=== PATIENT | male | born 1965 | race Caucasian/White ===

== ENCOUNTER → 2019-10-26 | Outpatient (CLI) | payer OTHER ==
[~2019-10-26] MED LIST: ACETAMINOPHEN 325 MG TAB As Ordered ONE; AZIT500T5; B-1100TA2 PO; CONS10SO3 PO; FOLI1TAB11 PO; LISI10TA4; MAGNESIUM; MIDO5TA PO; MUCI1LIQ3 PO; POTASSIUM
--- NOTE | 2019-10-26 17:10 | REP ---
ULTRASOUND GUIDED LEFT THORACENTESIS The procedure was performed under the direct supervision of Dr. Khan. The risks and benefits of the procedure were explained to the patient and informed consent was obtained. The left pleural effusion was localized using ultrasound guidance. The skin was prepped and draped in a sterile fashion. 1% lidocaine was used as a local anesthetic. An 8-Turkmen multi side-hole catheter was inserted using trocar technique. 2000 ml of low viscosity red colored fluid was withdrawn and discarded. The patient tolerated the procedure well and there were no immediate complications. After the appropriate amount of monitored convalescence the patient was discharged from the department. Electronically Signed by ANAMARIA Ashford 10/26/2019 04:39 P Electronically Signed by Shashi Khan MD 10/26/2019 05:02 P
[2019-10-26 17:45] VITALS: BP 116/64
--- NOTE | 2019-10-27 08:30 | REP ---
LIMITED ABDOMINAL ULTRASOUND: Limited abdominal ultrasound performed prior to a scheduled paracentesis. No free ascites fluid is present and therefore, the paracentesis is cancelled. However there is a large complex septated cystic and solid mass in the mid abdomen measuring approximately 31 x 24 x 15 cm. Note is also made of a large left pleural effusion. Note is also made of two adjacent nodules in the left lobe of the liver, measuring approximately 5 cm in diameter and 3.7 cm in diameter. Electronically Signed by Shashi Khan MD 10/27/2019 07:31 P
--- NOTE | 2019-10-27 09:34 | REP ---
CHEST, TWO VIEWS: Two views of the chest are performed status post left thoracentesis. There is residual pleural fluid present on the left without evidence of pneumothorax. Right lung is clear. There is no gross cardiomegaly. Mediastinal silhouette is unremarkable. Electronically Signed by Shashi Khan MD 10/27/2019 07:31 P
== END ==
LOC: M IRPRO 13:35
PROVIDERS: ATTEND Specialist
DX: C22.0 Liver cell carcinoma (principal); R18.8 Other ascites; J90 Pleural effusion, not elsewhere classified; R19.07 Generalized intra-abdominal and pelvic swelling, mass and lump

== ENCOUNTER 2019-12-13 01:04 | Inpatient (IN) | payer OTHER ==
[2019-12-13] VITALS (23 sets, daily range): BP systolic 87–112; BP diastolic 49–80; O2SAT 97–100
[~2019-12-13 01:04] MED LIST changes: -ACETAMINOPHEN 325 MG TAB As Ordered ONE; -MAGNESIUM; -MIDO5TA PO; -POTASSIUM
[2019-12-13] MEDS ORDERED: MAGNESIUM (06:56)
[2019-12-13] MEDS ORDERED: POTASSIUM (06:56)
--- NOTE | 2019-12-13 07:28 | HPEPDOC ---
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 CXR from [facility] noted moderate b/l pleural effusions worse on the L. side. He was recently admitted at [facility] and underwent liver biopsy, received treatment for infected ascites with MSSA and treated with Rocephin. Despite the dyspnea, he was found to be saturating well at [facility] but noted to be anemic with Hb 6.3 and received 2 units pRBC. On arrival at [facility], patient states that he feels much better and no longer dyspneic. He reports generalized weakness but otherwise no specific complains including any chest pain, SOB, fever or chills. He states that he is aware of his poor prognosis and states that to let him go and don't resuscitate him if something happens. PAST MEDICAL HISTORY: Refer to HPI PAST SURGICAL HISTORY: TIPS Thoracentesis SOCIAL HISTORY: Hx heavy drinking, has quit for many years. denies tobacco or drug use. FAMILY HISTORY: Grandfather- prostate cancer ALLERGIES: Please see below. REVIEW OF SYSTEMS: 10 point ROS negative except as above HOME MEDICATIONS: Please see below. PHYSICAL EXAMINATION: - General: Jaundice/pale and dry. Generalized weakness. - HEENT: Atraumatic, PERRLA. Very dry mucous membrane. - CVS: normal rate, normal rhythm. - Lungs: Decrease breath sounds in b/l base with mild diffuse wheezing - Abdomen: Nontender, distended abdomen. - Extremities: No extremity swelling, limbs intact - Skin: Warm and dry - Neuro: CN II-XII grossly intact. Generalized weakness. LABORATORY DATA: See below. IMAGING: CXR 2 view ordered MICROBIOLOGY: Please see below. ASSESSMENT AND PLAN: 1. Dyspnea - recurrent pleural effusions s/p 3 thoracentesis. - saturating well on this admission and patient is not complaining of any dyspnea at the moment. - f/u CXR. Consider diuresis vs. thoracentesis. - oxygen support if needed. 2. Decompensated liver failure in setting of hepatocellular carcinoma - Reports of palliative treatment vs. hospice noted on outpatient note. - Unclear as to current course of treatment plan per patient, may benefit from more records. - Labs from [facility] noted elevated bilirubin 6.4, elevated lactic acid, and INR 3.4. - Patient had noted that he is to be DNR/DNI. Concern that he may continue to decline on this admission. - From records: INR 3.4, LA 4.1, Cr 1.2. - Patient received 2 units pRBC. f/u Repeat CBC. - CXR 2View ordered here. may need CTS vs. IR evaluation for thoracentesis. - Obtain abdominal US. Received rocephin prior to arrival. DVT ppx: SCD, no chemical ppx given anemia Code status: DNR/DNI Vital Signs Vital Signs Date Time Temp Pulse Resp B/P (MAP) Pulse Ox O2 Delivery O2 Flow Rate FiO2 12/13/19 06:00 97.9 86 28 112/72 (85) 100 Nasal Cannula 2.0 Home Medications Scheduled Folic Acid (Folic Acid) 1 Mg Tablet, 1 MG PO DAILY Lactulose (Constulose) 10 Gm/15 Ml Solution, 45 ML PO TID Thiamine HCl (Vitamin B-1) 100 Mg Tablet, 100 MG PO DAILY Scheduled PRN Guaifenesin/Dextromethorphan (Mucinex Fast-Max Dm Max Liquid) 180 Ml Liquid, 5 ML PO Q4HP PRN for cough or cold Miscellaneous Medications [Magnesium] PURCHASES OTC, UNSURE OF STRENGTH [Potassium] PURCHASES OTC, UNSURE OF STRENGTH Allergies Coded Allergies: No Known Allergies (Unverified , 10/09/19) A-FIB/CHADSVASC A-FIB History Current/History of A-Fib/PAF?: No OXANA MORALEZ MD Dec 13, 2019 07:28
[2019-12-13] MEDS ORDERED: SLF 3 ML SYR IV PRN (08:45)
[2019-12-13] MEDS: MOM 30ML SUSPENSION UDC PO SCH (09:00)
[2019-12-13] MEDS: PANTOPRAZOLE 40MG TAB (PROTONIX) PO SCH (09:00)
[2019-12-13] MEDS: THIAMINE 100 MG TAB PO SCH (09:15)
[2019-12-13] MEDS: FOLIC ACID 1 MG TAB PO SCH (09:15)
[2019-12-13 09:48] LABS: APPEARANCE, URINE CLEAR (CLEAR); BACTERIA, URINE AUTO NEGATIVE (NEGATIVE); BILIRUBIN, URINE AUTO 1+ (NEGATIVE); BLOOD, URINE BLOOD 1+ (NEGATIVE); COLOR, URINE AMBER (YELLOW); GLUCOSE, URINE (UA) AUTO NEGATIVE (NEGATIVE); KETONE, URINE AUTO NEGATIVE (NEGATIVE); LEUKOCYTE ESTERASE, URINE AUTO NEGATIVE (NEGATIVE); NITRITE, URINE AUTO NEGATIVE (NEGATIVE); PROTEIN, URINE AUTO NEGATIVE (NEGATIVE); RBC, URINE AUTO 1 /HPF (0-3); SPECIFIC GRAVITY URINE AUTO 1.008 (1.002-1.035); SQUAMOUS EPITHELIAL CELL UR AU 0 /HPF (0-6); WBC, URINE AUTO 2 /HPF (0-3)
[2019-12-13] MEDS: MIDODRINE 5 MG TAB PO SCH ×2 (11:41→15:42)
[2019-12-13] MEDS ORDERED: NS 500 ML IV ONE (12:00)
[2019-12-13] MEDS ORDERED: MIDAZOLAM INJ 2MG/2ML VIAL (J2250 PER 1MG) As Ordered ONE ×2 (12:13→12:14)
[2019-12-13] MEDS ORDERED: flumazeniL 0.5 MG/5 ML VIAL As Ordered ONE ×2 (12:13→14:37)
[2019-12-13] MEDS ORDERED: LIDOCAINE 1% MDV 20ML VIAL As Ordered ONE (12:14)
[2019-12-13] MEDS: PIPERACILLIN/TAZOBACTAM SOD 3.375 GM in D5W MINI-BAG PLUS 50 ML IV SCH ×3 (12:18→23:27)
[2019-12-13] MEDS ORDERED: VANCOMYCIN HCL 750 MG, VIAL MATE ADAPTER 1 EACH in D5W 250 ML IV ONE (13:00)
[2019-12-13] MEDS ORDERED: MIDAZOLAM INJ 2MG/2ML VIAL (J2250 PER 1MG) IV STA (13:45)
[2019-12-13] MEDS ORDERED: LIDOCAINE 1% MDV 20ML VIAL SC ONE (13:45)
[2019-12-13 13:46] LABS: HEMATOCRIT 23.7 % (42.0-52.0); MEAN CORPUSCULAR HEMOGLOBIN 31.6 pg (27.0-33.0); MEAN CORPUSCULAR HGB CONC 33.8 g/dl (32.0-36.5); MEAN CORPUSCULAR VOLUME 93.7 fl (80.0-96.0); RED BLOOD COUNT 2.53 10^6/uL (4.30-6.10); WHITE BLOOD COUNT 9.6 10^3/uL (4.0-10.0)
[2019-12-13 13:48] LABS: PROTHROMBIN TIME 53.7 SECONDS (11.8-14.0)
[2019-12-13 13:49] LABS: PARTIAL THROMBOPLASTIN TIME 105.9 SECONDS (25.0-38.4)
[2019-12-13 13:53] LABS: ALT/SGPT 44 U/L (12-78); BILIRUBIN,TOTAL 5.3 MG/DL (0.2-1.0); BLOOD UREA NITROGEN 13 MG/DL (7-18); CALCIUM LEVEL 7.6 MG/DL (8.5-10.1); CARBON DIOXIDE LEVEL 21 MEQ/L (21-32); CHLORIDE LEVEL 109 MEQ/L (98-107); CREATININE FOR GFR 1.02 MG/DL (0.70-1.30); GLOMERULAR FILTRATION RATE > 60.0 (>56); GLUCOSE, FASTING 80 MG/DL (70-100); PHOSPHORUS LEVEL 4.4 MG/DL (2.5-4.9); POTASSIUM SERUM 3.6 MEQ/L (3.5-5.1); SODIUM LEVEL 138 MEQ/L (136-145)
[2019-12-13 13:54] LABS: ALBUMIN 1.1 GM/DL (3.2-5.2); MAGNESIUM LEVEL 1.9 MG/DL (1.8-2.4)
[2019-12-13 13:55] LABS: INR 5.83
[2019-12-13] MEDS ORDERED: KETOROLAC 30 MG/ML 1ML VIAL As Ordered ONE (13:58)
[2019-12-13] MEDS: SLF 3 ML SYR IV SCH ×2 (14:00→20:21)
[2019-12-13 14:12] LABS: PLATELET COUNT, AUTOMATED 70 10^3/uL (150-450)
[2019-12-13] MEDS ORDERED: ONDANSETRON 4MG/2ML VIAL IV PRN (14:15)
[2019-12-13] MEDS ORDERED: PERCOCET 5MG/325MG TAB PO PRN ×2 (14:15)
[2019-12-13] MEDS ORDERED: LEVALBUTEROL 1.25 MG/0.5 ML CONCENTRATE NEB NEB PRN (14:15)
[2019-12-13] MEDS ORDERED: ACETAMINOPHEN TAB 650MG DOSE (2X325MG) PO PRN (14:15)
[2019-12-13] MEDS ORDERED: BISACODYL 10 MG SUPP PR PRN (14:15)
[2019-12-13] MEDS ORDERED: NORCO, ANEXSIA 5/325MG TABLET (HYDROcodone/ACETAMINOPHEN) PO PRN (14:15)
[2019-12-13] MEDS ORDERED: KETOROLAC 30 MG/ML 1ML VIAL IV ONE (14:30)
[2019-12-13] MEDS ORDERED: flumazeniL 0.5 MG/5 ML VIAL IV STA (14:35)
[2019-12-13] MEDS ORDERED: KCL 20MEQ IN D5/0.9%NACL 1000 ML As Ordered ONE (14:48)
[2019-12-13] MEDS: KCL 20MEQ IN D5/NS 1000ML 1,000 ML IV SCH (14:54)
[2019-12-13] MEDS ORDERED: VANCOMYCIN HCL 1,000 MG, VIAL MATE ADAPTER 1 EACH in D5W 250 ML IV ONE (15:00)
[2019-12-13 15:02] LABS: APPEARANCE, BODY FLUID TURBID (CLEAR); PLEURAL FL COLOR RED (COLORLESS); SOURCE, BODY FLUID PLEURAL; SOURCE, BODY FLUID pH PLEURAL
[2019-12-13 15:03] LABS: PH BODY FLUID 7.393 UNITS (NOT ESTABLISHED)
[2019-12-13 15:24] LABS: ABG BASE EXCESS -7.9 (-2.0-2.0); ABG HCO3 15.7 MEQ/L (22.0-26.0); ABG PARTIAL PRESSURE CO2 25.3 mmHg (35.0-45.0); ABG PARTIAL PRESSURE O2 185.3 mmHg (75.0-100.0); ABG STANDARD HCO3 17.9 MEQ/L (22.0-26.0); ABG TOTAL CO2 16.5 MEQ/L (22.0-29.0); ABG pH (ARTERIAL) 7.412 UNITS (7.350-7.450)
[2019-12-13 15:25] LABS: ABG O2 SATURATION 99.6 % (95.0-99.0)
[2019-12-13 15:25] LABS: AMYLASE, BODY FLUID 10 U/L (NOT ESTABLISHED); CHOLESTEROL, BODY FLUID < 50 MG/DL (NOT ESTABLISHED); LDH, BODY FLUID 329 U/L (NOT ESTABLISHED); SOURCE, BODY FLUID AMYLASE PLEURAL; SOURCE, BODY FLUID CHOL PLEURAL; SOURCE, BODY FLUID GLUCOSE PLEURAL; SOURCE, BODY FLUID LDH PLEURAL; SOURCE, BODY FLUID TRIG PLEURAL; TRIGLYCERIDE, BODY FLUID 22 MG/DL (NOT ESTABLISHED)
[2019-12-13 15:26] LABS: SOURCE, BODY FLUID ALBUMIN PLEURAL; SOURCE, BODY FLUID TOT PROTEIN PLEURAL; TOTAL PROTEIN, BODY FLUID 5.9 G/DL (NOT ESTABLISHED)
[2019-12-13] MEDS: PHYTONADIONE 5 MG TAB PO SCH (15:42)
--- NOTE | 2019-12-13 17:16 | IPNPDOC ---
Text Note Date of Service The patient was seen on 12/13/19. NOTE S: Pt confused, although oriented to person and time. Tells me he's had a non productive cough after falling in a ditch 2 weeks ago? Diffult to obtain a proper history. Attempted to call mother/father, however went to voicemail. Had a loculated pleural effusion, appears septic, Pt started on Vanc/zosyn. Dr. Kong consulted and Chest tube placed, with 2L removed. [facility] called and noted + Bld cx with staph aureus. PHYSICAL EXAMINATION: Vitals: (see below) General: No acute distress, laying comfortably in bed. HEENT: dry mucous membranes. Neck: No JVD or lymphadenopathy Cardiac: RRR, No murmurs Pulm: Diminished at the bases with crackles. Mild exp wheezing. No stridor or use of accessory muscles. Abd: NT/ND + BS Ext: No edema or cyanosis. Asterixis Strength 5/5 BUE, BLE. No focal deficits. LABORATORY DATA: See below. ASSESSMENT/PLAN: 1. ??Sepsis 2/2 PNA with ?loculated perihepatic lesion. On Vanco/Zosyn. Prelim bld cx from [facility] ?+staph aureus in 1 bottle. Repeat cx drawn here. Lactic acidosis noted; will repeat. F/u cx from pleural fluid. Will need to discuss loculated fluid in perihepatic region with IR; ? if able to drain given high inr. 2. H/o Cirrhosis and HCC s/p TIPS and recurrent paracentesis. Will consult GI tomorrow when available. INR elevated likely 2/2 cirrhosis/sepsis. Vit K ordered. No bleeding noted. 3. Acute on chronic anemia s/p 2U PRBC. Hb stable at this time. Cont to monitor. Check FOBT 4. Hepatic encephalopathy - started on lactulose 5. Large pleural effusion s/p thoracentesis - f/u cx DVT Prophy: SCDs Obtain records from [facility] from prior hospitalization. Overall prognosis guarded. VS,Fishbone, I+O VS, Fishbone, I+O Laboratory Tests 12/13/19 12:55 Vital Signs Date Time Temp Pulse Resp B/P (MAP) Pulse Ox O2 Delivery O2 Flow Rate FiO2 12/13/19 15:58 97.7 70 22 97/56 (70) 98 Nasal Cannula 4.0 12/13/19 12:00 97 RUBY DEAN MD Dec 13, 2019 17:16
[2019-12-13] MEDS: LACTULOSE 20 GM/30 ML SYRUP UD PO SCH ×2 (18:02→23:27)
[2019-12-13 18:26] LABS: BASO % 0.2 % (0.0-1.0); EOS # 0.1 10^3/uL (0.0-0.5); EOS % 0.8 % (0.0-3.0); HEMATOCRIT 26.4 % (42.0-52.0); HEMOGLOBIN 8.4 g/dl (13.5-17.5); LYMPH # 0.6 10^3/uL (1.5-5.0); LYMPH % 6.4 % (24.0-44.0); MEAN CORPUSCULAR HEMOGLOBIN 31.2 pg (27.0-33.0); MEAN CORPUSCULAR HGB CONC 31.8 g/dl (32.0-36.5); MEAN CORPUSCULAR VOLUME 98.1 fl (80.0-96.0); MONO # 0.5 10^3/uL (0.0-0.8); MONO % 5.8 % (0.0-5.0); NEUTROPHILS # 7.6 10^3/uL (1.5-8.5); NEUTROPHILS % 86.3 % (36.0-66.0); RED BLOOD COUNT 2.69 10^6/uL (4.30-6.10); WHITE BLOOD COUNT 8.9 10^3/uL (4.0-10.0)
[2019-12-13 18:34] LABS: PLATELET COUNT, AUTOMATED 67 10^3/uL (150-450)
[2019-12-13 18:53] LABS: ALT/SGPT 44 U/L (12-78); BILIRUBIN,TOTAL 5.1 MG/DL (0.2-1.0); BLOOD UREA NITROGEN 15 MG/DL (7-18); CALCIUM LEVEL 7.3 MG/DL (8.5-10.1); CARBON DIOXIDE LEVEL 20 MEQ/L (21-32); CHLORIDE LEVEL 110 MEQ/L (98-107); CREATININE FOR GFR 1.17 MG/DL (0.70-1.30); GLOMERULAR FILTRATION RATE > 60.0 (>56); GLUCOSE, FASTING 108 MG/DL (70-100); MAGNESIUM LEVEL 1.8 MG/DL (1.8-2.4); PHOSPHORUS LEVEL 4.4 MG/DL (2.5-4.9); POTASSIUM SERUM 3.7 MEQ/L (3.5-5.1); SODIUM LEVEL 139 MEQ/L (136-145); TOTAL PROTEIN 8.8 GM/DL (6.4-8.2)
[2019-12-13] MEDS: LEVALBUTEROL 1.25 MG/0.5 ML CONCENTRATE NEB NEB SCH (20:16)
[2019-12-13] MEDS: VANCOMYCIN HCL 1,000 MG, VIAL MATE ADAPTER 1 EACH in D5W 250 ML IV SCH (20:20)
[2019-12-13] MEDS: KETOROLAC 30 MG/ML 1ML VIAL IV SCH (20:20)
[2019-12-13] MEDS ORDERED: DOCUSATE SODIUM 100 MG CAP PO SCH (21:00)
[2019-12-14] VITALS (14 sets, daily range): BP systolic 92–119; BP diastolic 50–84; O2SAT 89–100
[2019-12-14] MEDS: LEVALBUTEROL 1.25 MG/0.5 ML CONCENTRATE NEB NEB SCH ×4 (01:41→19:50)
[2019-12-14] MEDS: KETOROLAC 30 MG/ML 1ML VIAL IV SCH (02:35)
[2019-12-14] MEDS: KCL 20MEQ IN D5/NS 1000ML 1,000 ML IV SCH (04:49)
[2019-12-14] MEDS: LACTULOSE 20 GM/30 ML SYRUP UD PO SCH ×3 (05:22→17:57)
[2019-12-14] MEDS: SLF 3 ML SYR IV SCH ×2 (05:22→14:00)
[2019-12-14] MEDS: PIPERACILLIN/TAZOBACTAM SOD 3.375 GM in D5W MINI-BAG PLUS 50 ML IV SCH ×3 (05:23→17:57)
[2019-12-14 05:48] LABS: ABG HCO3 17.4 MEQ/L (22.0-26.0); ABG PARTIAL PRESSURE CO2 30.6 mmHg (35.0-45.0); ABG PARTIAL PRESSURE O2 140.4 mmHg (75.0-100.0); ABG TOTAL CO2 18.3 MEQ/L (22.0-29.0); ABG pH (ARTERIAL) 7.372 UNITS (7.350-7.450)
[2019-12-14 05:49] LABS: ABG BASE EXCESS -7.1 (-2.0-2.0); ABG O2 SATURATION 99.2 % (95.0-99.0); ABG STANDARD HCO3 18.6 MEQ/L (22.0-26.0)
[2019-12-14 06:21] LABS: BASO % 0.6 % (0.0-1.0); EOS # 0.2 10^3/uL (0.0-0.5); EOS % 3.3 % (0.0-3.0); HEMATOCRIT 23.2 % (42.0-52.0); HEMOGLOBIN 7.5 g/dl (13.5-17.5); LYMPH # 0.7 10^3/uL (1.5-5.0); LYMPH % 10.7 % (24.0-44.0); MEAN CORPUSCULAR HEMOGLOBIN 30.6 pg (27.0-33.0); MEAN CORPUSCULAR HGB CONC 32.3 g/dl (32.0-36.5); MEAN CORPUSCULAR VOLUME 94.7 fl (80.0-96.0); MONO # 0.5 10^3/uL (0.0-0.8); MONO % 7.1 % (0.0-5.0); NEUTROPHILS # 5.2 10^3/uL (1.5-8.5); RED BLOOD COUNT 2.45 10^6/uL (4.30-6.10); WHITE BLOOD COUNT 6.7 10^3/uL (4.0-10.0)
[2019-12-14 06:30] LABS: PLATELET COUNT, AUTOMATED 61 10^3/uL (150-450)
[2019-12-14 06:40] LABS: ALBUMIN 0.8 GM/DL (3.2-5.2); ALT/SGPT 38 U/L (12-78); BILIRUBIN,DIRECT 2.5 MG/DL (0.0-0.2); BILIRUBIN,TOTAL 3.8 MG/DL (0.2-1.0); BLOOD UREA NITROGEN 17 MG/DL (7-18); CALCIUM LEVEL 7.4 MG/DL (8.5-10.1); CARBON DIOXIDE LEVEL 20 MEQ/L (21-32); CHLORIDE LEVEL 112 MEQ/L (98-107); CREATININE FOR GFR 1.56 MG/DL (0.70-1.30); GLOMERULAR FILTRATION RATE 49.8 (>56); GLUCOSE, FASTING 126 MG/DL (70-100); POTASSIUM SERUM 3.3 MEQ/L (3.5-5.1); SODIUM LEVEL 140 MEQ/L (136-145); TOTAL PROTEIN 7.2 GM/DL (6.4-8.2)
[2019-12-14] MEDS ORDERED: POTASSIUM CHLORIDE 10 MEQ SR TABLET PO ONE (08:00)
[2019-12-14] MEDS: PANTOPRAZOLE 40MG TAB (PROTONIX) PO SCH (08:28)
[2019-12-14] MEDS: PHYTONADIONE 5 MG TAB PO SCH (08:28)
[2019-12-14] MEDS: FOLIC ACID 1 MG TAB PO SCH (08:29)
[2019-12-14] MEDS: THIAMINE 100 MG TAB PO SCH (08:29)
[2019-12-14] MEDS: VANCOMYCIN HCL 1,000 MG, VIAL MATE ADAPTER 1 EACH in D5W 250 ML IV SCH ×2 (08:29→19:58)
[2019-12-14] MEDS: MIDODRINE 5 MG TAB PO SCH ×3 (08:29→16:15)
[2019-12-14] MEDS: MOM 30ML SUSPENSION UDC PO SCH (08:29)
[2019-12-14] MEDS ORDERED: cefTRIAXone SOD 1 GM in D5W MINI-BAG PLUS 50 ML IV SCH (09:00)
--- NOTE | 2019-12-14 09:36 | REPVR ---
PROCEDURE INFORMATION: Exam: US Retroperitoneal Limited, Kidneys Exam date and time: 12/14/2019 9:20 AM Age: 54 years old Clinical indication: Abnormal findings; Abnormal lab test; Abnormal kidney function lab tests TECHNIQUE: Imaging protocol: Real-time ultrasound of the retroperitoneum with image documentation. Examination was focused on the kidneys. COMPARISON: None provided. FINDINGS: Right kidney: The right kidney measures 12.1 x 6.5 x 6.7 cm. Normal appearing echotexture. There is no hydronephrosis or demonstrated renal stone, cyst or mass. Left kidney: The left kidney measures 13.1 x 6.0 x 6.7 cm. Normal appearing echotexture. There is no hydronephrosis or demonstrated renal stone, cyst or mass. Intraperitoneal space: Trace ascites was noted on the right. Bladder: The urinary bladder was nearly empty, and not well evaluated. IMPRESSION: 1. No demonstrated sonographic abnormality of the kidneys. 2. Trace ascites on the right. Electronically signed by: Carlos Harkins On 12/14/2019 09:36:30 AM
--- NOTE | 2019-12-14 10:54 | IPNPDOC ---
Text Note Date of Service The patient was seen on 12/14/19. NOTE S: Pt more awake and alert today. Denies Cp/SOB/palpitations. No N/V/abd pain. CT in place. PHYSICAL EXAMINATION: Vitals: (see below) General: No acute distress, laying comfortably in bed. HEENT: dry mucous membranes. Neck: No JVD or lymphadenopathy Cardiac: RRR, No murmurs Pulm: Diminished at the bases with crackles. no wheezing. No stridor or use of accessory muscles. CT left chest wall Abd: NT/ND + BS Ext: No edema or cyanosis. Asterixis Strength 5/5 BUE, BLE. No focal deficits. Alert, oriented to person, place, time. LABORATORY DATA: See below. ASSESSMENT/PLAN: 1. ??Sepsis 2/2 PNA with ?loculated perihepatic lesion. On Vanco/Zosyn. 1 Prelim bld cx from [facility] +staph aureus. Repeat cx drawn here negative. Lactic acidosis noted; will repeat. F/u cx from pleural fluid. 2. CHI - d/c NSAIDs. On IVF. Renal u/s w/o obstruction. Urine lytes. Nephro cons ulted. 3. H/o Cirrhosis and HCC s/p TIPS and recurrent paracentesis. INR elevated likely 2/2 cirrhosis/sepsis. Vit K ordered. No bleeding noted. Bili trending down. 4. Acute on chronic anemia s/p 2U PRBC. Hb stable at this time. Cont to monitor. Check FOBT. CT with serosang drainage. Transfuse additional 1 U PRBC today. 5. Hepatic encephalopathy - started on lactulose. mentation improving 6. Large pleural effusion h/o s/p thoracentesis - Now with Chest tube. Appreciate Dr. Kong's input. 7. ?perihepatic effusion. Repeat CT Abd/pelv. Will speak with IR afterwards results. DVT Prophy: SCDs Obtain records from [facility] from prior hospitalization. Pt is now full code. MOLST updated. Overall prognosis guarded. VS,Fishbone, I+O VS, Fishbone, I+O Laboratory Tests 12/13/19 12:55 12/13/19 17:50 12/14/19 05:14 Vital Signs Date Time Temp Pulse Resp B/P (MAP) Pulse Ox O2 Delivery O2 Flow Rate FiO2 12/14/19 08:00 97.6 62 18 96/54 (68) 99 Nasal Cannula 2.0 12/13/19 16:00 97 I&O- Last 24 Hours up to 6 AM 12/14/19 06:00 Intake Total 2801 ml Output Total 4000 ml Balance -1199 ml RUBY DEAN MD Dec 14, 2019 10:54
--- NOTE | 2019-12-14 11:53 | REPVR ---
PROCEDURE INFORMATION: Exam: CT Abdomen And Pelvis Without Contrast Exam date and time: 12/14/2019 10:17 AM Age: 54 years old Clinical indication: Other: Eval loculated periheptic fluid collection TECHNIQUE: Imaging protocol: Computed tomography of the abdomen and pelvis without contrast. Radiation optimization: All CT scans at this facility use at least one of these dose optimization techniques: automated exposure control; mA and/or kV adjustment per patient size (includes targeted exams where dose is matched to clinical indication); or iterative reconstruction. COMPARISON: Abdomen, limited US 10/26/2019 2:44:11 PM FINDINGS: Limitations: Evaluation is somewhat limited by lack of IV contrast. Liver: The liver has a shrunken appearance with a nodular contour and heterogeneous density, suggesting cirrhosis. It contains a cyst measuring 2.0 cm on the right, and a hypodense, indeterminate lesion measuring 4.1 x 3.5 cm on the left. A TIPS is noted. Gallbladder and bile ducts: The gallbladder contains stones. Pancreas: Grossly unremarkable. Spleen: The spleen is mildly enlarged. Adrenals: Grossly unremarkable. Kidneys and ureters: There is no hydronephrosis, and no renal or ureteral calculus is identified. The right kidney contains an indeterminate density lesion measuring 1.4 cm posteriorly in the interpolar region. It appears otherwise grossly unremarkable. The left kidney is grossly unremarkable in appearance. Stomach and bowel: The unopacified small bowel is not significantly distended to suggest obstruction. The large bowel is grossly unremarkable in appearance. Appendix: The appendix appears normal. Intraperitoneal space: No free air is evident. There is small free fluid about the liver and spleen. There is also mild generalized mesenteric edema. In addition to the free fluid, there are multiple foci of loculated fluid in the abdomen, including an area measuring 11.2 x 6.1 x 9.4 cm anteriorly over the left hepatic lobe, which appears mildly thick-walled, a 6.2 x 3.4 x 6.4 cm collection in the left upper quadrant and a 20.2 x 5.4 x 13.2 cm collection anteriorly along the central to left abdomen, which also appears mildly thick-walled. Vasculature: The abdominal aorta is nonaneurysmal. Atherosclerotic vascular calcifications are noted. Lymph nodes: No gross pathologic lymphadenopathy. Bladder: The urinary bladder is not distended, but appears thick walled. Reproductive: Unremarkable as visualized. Bones/joints: Degenerative changes involve the spine and hips. Soft tissues: There is mild to moderate generalized subcutaneous edema. IMPRESSION: 1. Cirrhotic liver with a TIPS and mild splenomegaly. 2. 4.1 cm indeterminate left hepatic lesion. Recommend further evaluation with liver MRI. 3. Small free fluid with mild generalized mesenteric edema and multiple foci of loculated fluid in the abdomen as above. Infection or malignancy not excluded. 4. Mild to moderate generalized subcutaneous edema. 5. 1.4 cm indeterminate right renal lesion. Recommend MR without and with contrast or CT without and with contrast. MR is preferred for masses under 1.5 cm. 6. Cholelithiasis. 7. Thick-walled appearance of the urinary bladder, could reflect cystitis. COMMENTS: Dedicated chest CT has been performed, and findings above the diaphragm will be reported separately. Electronically signed by: Carlos Harkins On 12/14/2019 11:53:40 AM
[2019-12-14 11:58] LABS: INR 4.53
[2019-12-14 12:00] LABS: PARTIAL THROMBOPLASTIN TIME 100.4 SECONDS (25.0-38.4)
--- NOTE | 2019-12-14 12:10 | REPVR ---
PROCEDURE INFORMATION: Exam: CT Chest Without Contrast Exam date and time: 12/14/2019 10:20 AM Age: 54 years old Clinical indication: Other: Pleural effusion/status of underlying lung TECHNIQUE: Imaging protocol: Computed tomography of the chest without contrast. Radiation optimization: All CT scans at this facility use at least one of these dose optimization techniques: automated exposure control; mA and/or kV adjustment per patient size (includes targeted exams where dose is matched to clinical indication); or iterative reconstruction. COMPARISON: CT Chest without contrast 12/13/2019 10:26 AM (report not provided) FINDINGS: Limitations: Evaluation is somewhat limited by lack of IV contrast. Tubes, catheters and devices: A left chest tube has been placed in the interval. Lungs: There is improved aeration of the left lung, again with considerable atelectasis and probable areas of consolidation in the upper and lower lobes. The right lung again demonstrates mild dependent atelectasis. A tiny right posterior tracheal diverticulum is again present. Pleural space: Previous left pleural effusion has considerably decreased in size, with small residual pleural fluid and now with small pleural gas. Fluid is somewhat loculated. A small right pleural effusion is again present. No right pneumothorax. Heart: Unremarkable. No cardiomegaly. No pericardial effusion. Aorta: The thoracic aorta is nonaneurysmal. Atherosclerotic vascular calcifications are again present. Lymph nodes: No gross pathologic lymphadenopathy. Bones/joints: There is again a chronic fracture of the left 10th rib. Degenerative changes again involve the spine and shoulders. Soft tissues: Unremarkable. IMPRESSION: 1. Left chest tube placed since 1 day prior, with considerably decreased, somewhat loculated left pleural effusion, now small, now with small left pleural gas. 2. Improved aeration of the left lung, again with considerable atelectasis and probable areas of consolidation in the upper and lower lobes. 3. Persistent small right pleural effusion. COMMENTS: See separate abdominal CT report for findings below the diaphragm. Electronically signed by: Carlos Harkins On 12/14/2019 12:03:43 PM
[2019-12-14] MEDS ORDERED: NS 1,000 ML IV ONE (12:15)
[2019-12-14 15:45] LABS: VITAMIN B12 LEVEL > 2000 PG/ML (247-911)
[2019-12-14 18:29] LABS: BASO % 0.5 % (0.0-1.0); EOS # 0.3 10^3/uL (0.0-0.5); EOS % 3.6 % (0.0-3.0); HEMATOCRIT 26.6 % (42.0-52.0); HEMOGLOBIN 8.8 g/dl (13.5-17.5); LYMPH # 0.7 10^3/uL (1.5-5.0); LYMPH % 9.7 % (24.0-44.0); MEAN CORPUSCULAR HGB CONC 33.1 g/dl (32.0-36.5); MEAN CORPUSCULAR VOLUME 96.7 fl (80.0-96.0); MONO # 0.6 10^3/uL (0.0-0.8); MONO % 7.5 % (0.0-5.0); NEUTROPHILS # 5.9 10^3/uL (1.5-8.5); NEUTROPHILS % 78.2 % (36.0-66.0); RED BLOOD COUNT 2.75 10^6/uL (4.30-6.10); WHITE BLOOD COUNT 7.6 10^3/uL (4.0-10.0)
[2019-12-14 18:30] LABS: PLATELET COUNT, AUTOMATED 65 10^3/uL (150-450)
[2019-12-14 18:45] LABS: FIBRINOGEN 102 MG/DL (221-452)
[2019-12-14 18:57] LABS: D-DIMER QUANT > 4000 ng/ml (<500)
[2019-12-14 19:17] LABS: BILIRUBIN,TOTAL 4.1 MG/DL (0.2-1.0); CALCIUM LEVEL 7.5 MG/DL (8.5-10.1); CREATININE FOR GFR 2.11 MG/DL (0.70-1.30); GLOMERULAR FILTRATION RATE 35.2 (>56); PERCENT SATURATION 120.5 % (19.7-50.0); POTASSIUM SERUM 3.7 MEQ/L (3.5-5.1); TOTAL PROTEIN 8.1 GM/DL (6.4-8.2)
[2019-12-14] MEDS ORDERED: MIDO5TA PO (19:37)
[2019-12-14 19:52] LABS: VANCOMYCIN LEVEL TROUGH 28.8 UG/ML (10.0-20.0)
--- NOTE | 2019-12-14 20:13 | DS.PDOC ---
Discharge Summary General Date of Admission Dec 13, 2019 at 05:59 Date of Discharge 12/14/19 Attending Physician: RUBY DEAN MD Specialist/Consultants Involve: ZOLTAN MAIER MD Specialist/Consultants Involve Dr. Dilan Waddell Discharge Summary PROCEDURES PERFORMED DURING STAY: Chest tube ADMITTING/DISCHARGE DIAGNOSES: 1. Liver Failure with coagulopathy 2. Suspected PNA; Blood cx/pleural fluid cx negative thus far; maintained on vanc/zosyn pending final cx 3. CHI 4. Large pleural effusion s/p Chest Tube placement. 5. H/o cirrhosis with HCC s/p TIPS 6. 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 ER for management of dyspnea 2/2 pleural effusion. CXR from [facility] noted moderate b/l pleural effusions worse on the L. side. He was recently admitted at [facility] and underwent liver biopsy, received treatment for infected ascites with MSSA and treated with Rocephin. Despite the dyspnea, he was found t o be saturating well at [facility] but noted to be anemic with Hb 6.3 and received 2 units pRBC. On arrival at [facility], patient states that he feels much better and no longer dyspneic. Over course of hospitalization pt had a CT placed for a large loculated pleural effusion. Pt was maintained on Vanco/Zosyn pending cx. I have discussed the case with Dr. Maier who believes the patient is going into liver failure and would benefit from Transfer to [facility] for liver transplant and management. Pt and father aware of the patients poor prognosis and understand that by going to [facility] it's not guaranteed that he would be a candidate for a transplant. Discussed with Dr. Colunga who has graciously accepted the patient under his service for further monitor. Dr. Kong updated on the transfer and is agreeable. DISCHARGE MEDICATIONS: Please see below. ALLERGIES: Please see below. PHYSICAL EXAMINATION ON DISCHARGE: Vitals: (see below) General: No acute distress, laying comfortably in bed. HEENT: moist mucous membranes. Neck: No JVD or lymphadenopathy Cardiac: RRR, No murmurs Pulm: Diminished at the bases with crackles. no wheezing. No stridor or use of accessory muscles. CT left chest wall Abd: NT/ND + BS Ext: No edema or cyanosis. Strength 5/5 BUE, BLE. Confused LABORATORY DATA: Please see below. IMAGING: CT Chest IMPRESSION: 1. Left chest tube placed since 1 day prior, with considerably decreased, somewhat loculated left pleural effusion, now small, now with small left pleural gas. 2. Improved aeration of the left lung, again with considerable atelectasis and probable areas of consolidation in the upper and lower lobes. 3. Persistent small right pleural effusion. CT abd/pelvis IMPRESSION: 1. Cirrhotic liver with a TIPS and mild splenomegaly. 2. 4.1 cm indeterminate left hepatic lesion. Recommend further evaluation with liver MRI. 3. Small free fluid with mild generalized mesenteric edema and multiple foci of loculated fluid in the abdomen as above. Infection or malignancy not excluded. 4. Mild to moderate generalized subcutaneous edema. 5. 1.4 cm indeterminate right renal lesion. Recommend MR without and with contrast or CT without and with contrast. MR is preferred for masses under 1.5 cm. 6. Cholelithiasis. 7. Thick-walled appearance of the urinary bladder, could reflect cystitis. PROGNOSIS: Poor ACTIVITY: As tolerated. DIET: High protein diet DISCHARGE PLAN/DISPOSITION: Transfer to [facility] under care of Dr. Colunga DISCHARGE INSTRUCTIONS: 1. F/u with PCP, nephrology, GI as recommended by Shahriar Tom. DISCHARGE CONDITION: Stable. TIME SPENT ON DISCHARGE: 38 minutes. Father's number [phone] Cory Khna. Vital Signs/I&Os Vital Signs Date Time Temp Pulse Resp B/P (MAP) Pulse Ox O2 Delivery O2 Flow Rate FiO2 12/14/19 16:30 96.1 58 18 111/64 96 Room Air 12/14/19 08:00 2.0 12/13/19 16:00 97 I&O- Last 24 Hours up to 6 AM 12/14/19 06:00 Intake Total 2801 ml Output Total 4000 ml Balance -1199 ml Laboratory Data Labs 24H Laboratory Tests 2 12/14/19 05:14: Immature Granulocyte % (Auto) 0.3, Neutrophils (%) (Auto) 78.0H, Lymphocytes (%) (Auto) 10.7L, Monocytes (%) (Auto) 7.1H, Eosinophils (%) (Auto) 3.3H, Basophils (%) (Auto) 0.6, Neutrophils # (Auto) 5.2, Lymphocytes # (Auto) 0.7L, Monocytes # (Auto) 0.5, Eosinophils # (Auto) 0.2, Basophils # (Auto) 0.0, Nucleated Red Blood Cells % (auto) 0.0, Differential Slide Review Report, Peripheral Blood Smear Path Consult PERIPHERAL SMEAR, Anion Gap 8, Glomerular Filtration Rate 49.8L, Calcium Level 7.4L, Total Bilirubin 3.8H, Direct Bilirubin 2.5H, Aspartat e Amino Transf (AST/SGOT) 114H, Alanine Aminotransferase (ALT/SGPT) 38, Alkaline Phosphatase 56, Total Protein 7.2, Albumin 0.8L, Albumin/Globulin Ratio 0.1, Vitamin B12 Level > 2000H 12/14/19 05:35: Blood Gas Bicarbonate Standard 18.6L, Arterial Blood pH 7.372, Arterial Blood P artial Pressure CO2 30.6L, Arterial Blood Partial Pressure O2 140.4H, Arterial Blood Total CO2 18.3L, Arterial Blood HCO3 17.4L, Arterial Blood Base Excess - 7.1L, Arterial Blood Oxygen Saturation 99.2H 12/14/19 11:00: Prothrombin Time 44.0H, Prothromb Time International Ratio 4.53, Activated Partial Thromboplast Time 100.4H, Lactic Acid Level 3.5*H, Ammonia 41H 12/14/19 15:00: Lactic Acid Level 4.2*H 12/14/19 17:53: Immature Granulocyte % (Auto) 0.5, Neutrophils (%) (Auto) 78.2H, Lymphocytes (%) (Auto) 9.7L, Monocytes (%) (Auto) 7.5H, Eosinophils (%) (Auto) 3.6H, Basophils (%) (Auto) 0.5, Neutrophils # (Auto) 5.9, Lymphocytes # (Auto) 0.7L, Monocytes # (Auto) 0.6, Eosinophils # (Auto) 0.3, Basophils # (Auto) 0.0, Nucleated Red B lood Cells % (auto) 0.0, Immature Platelet Fraction 1.4, Fibrinogen 102L, D- Dimer, Quantitative > 4000H, Anion Gap 9, Glomerular Filtration Rate 35.2L, Calcium Level 7.5L, Iron Level 47L, Total Iron Binding Capacity 39L, Transferrin % Saturation 120.5H, Total Bilirubin 4.1H, Aspartate Amino Transf (AST/SGOT) 142H, Alanine Aminotransferase (ALT/SGPT) 48, Alkaline Phosphatase 68, Total Protein 8.1, Albumin 1.0#L, Albumin/Globulin Ratio 0.1 CBC/BMP Laboratory Tests 12/14/19 05:14 12/14/19 17:53 Microbiology Microbiology 12/13/19 Respiratory Virus Panel (PCR) (MARY) - Final, Complete 12/13/19 Blood Culture - Preliminary, Resulted No growth after 24 hours . All specim... 12/13/19 Blood Culture - Preliminary, Resulted No growth after 24 hours . All specim... 12/13/19 Acid Fast Stain, Received Pending 12/13/19 Mycobacterial Culture, Received Pending 12/13/19 Fungal Smear, Received Pending 12/13/19 Fungal Culture, Received Pending 12/13/19 Gram Stain - Final, Resulted 12/13/19 Anaerobic Culture, Resulted Pending 12/13/19 Body Fluid Culture, Received Pending Discharge Medications Scheduled Folic Acid (Folic Acid) 1 Mg Tablet, 1 MG PO DAILY, (Reported) Lactulose (Constulose) 10 Gm/15 Ml Solution, 45 ML PO TID, (Reported) Midodrine HCl (Midodrine HCl) 5 Mg Tablet, 5 MG PO 08,12,16 Thiamine HCl (Vitamin B-1) 100 Mg Tablet, 100 MG PO DAILY, (Reported) Allergies Coded Allergies: No Known Allergies (Unverified , 10/09/19) RUBY DEAN MD Dec 14, 2019 20:13
--- NOTE | 2019-12-30 11:34 | CR ---
DATE OF CONSULATION: 12/13/2019 Patient is seen at the request of Dr. Hanna of the hospitalist service for a pleural effusion and reported shortness of breath. HISTORY OF PRESENT ILLNESS: Patient is a 54-year-old white male with a known history of alcoholic cirrhosis along with hepatocellular carcinoma whose most recent story starts this morning when he woke up with a vicious abdominal pain. That was transitory and eventually resolved. His family did, however, bring him to the emergency room. He is a fairly poor historian and I detect some confabulation. He denies shortness of breath or ever being short of breath. There is no orthopnea, no paroxysmal nocturnal dyspnea that he admits to. There has been no cough, no sputum production, and no hemoptysis. He denies all chest pain or chest discomfort. It does not hurt to take a deep breath. He states that he has been eating alright and there has been no difficulty swallowing. He denies fever or sweats but has felt chilly in the last 24 hours. The chills are not rigor. He was transferred here from [facility] for definitive treatment of his pleural effusion. While he does not remember it, according to the chart he has had a pleurocentesis most recently in October of this year. At that time, 2000 mL of red-colored fluid was removed. I do not see that it underwent an analysis. Neither did it undergo pathological examination. PAST MEDICAL HISTORY: The above cirrhosis and hepatocellular carcinoma. Additionally, he has chronic thrombocytopenia. PAST SURGERIES: A transjugular intrahepatic portosystemic shunt (TIPS) procedure done at unknown period of time, he says 10 years ago. He denies ever having fractured any rib and he denies falling. MEDICATIONS AT HOME: - folic acid 1 mg daily - lactulose 45 mL three times a day of 10 grams/15 mL - vitamin B1 thiamine 100 mg daily TRAVEL HISTORY: He states that he has traveled extensively in [place] over the past 10 years. He also has traveled to [place] and [place]. EXPOSURES: No exposures to tuberculosis that he knows of. I did not ask about pets. HABITS: Has never smoked. He states that he used to drink 20 beers a day but quit 10 years ago. No illicit drugs. 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 REVIEW OF SYSTEMS: Constitutional: See history of present illness (HPI). Eyes: Denies prior jaundice. Denies diplopia or amaurosis fugax. Nose: Denies epistaxis. Mouth: Has his own teeth. Does complain of a very dry mouth today. Respiratory: See HPI. Cardiac: Denies prior myocardial infarctions or intermittent claudication. Denies palpitations or tachycardias. Gastrointestinal (GI): Other than his abdominal pain today which is transitory, denies nausea and vomiting, diarrhea, constipation, no hematochezia. Genitourinary (): Without dysuria or hematuria or prior history of renal stones. Endocrine: Without diabetes or thyroid disease. Hematologic: Denies easy bruisability, however he does look as if he has various ecchymoses over his arms and legs. Neurologic: Without paresthesias, paralyses, or prior seizures. Psychiatric: Denies pathological anxieties, depressions, or psychoses. Refer to physical examination. I do believe there is an element of dementia and probably Wernicke-Korsakoff syndrome. PHYSICAL EXAMINATION: Well-developed, chronically ill, white male in seemingly no acute distress. Vital signs: Temperature is 97.5, pulse of 83, in sinus rhythm, respiratory rate of 18 without the use of accessory muscles, who is 98% saturated on room air, and his blood pressure is 87/49 to 109/56. Nose without deformity. Mouth shows his mucous membranes to be dry. He has his own teeth in place with multiple missing teeth. Eyes show his pupils to be equal and reactive to light. Extraocular muscles are intact. Sclerae are very icteric. Neck is supple, there is no jugular venous distension, no subcutaneous emphysema, trachea is midline. There is no lymphadenopathy and no carotid bruits. He has 2+ carotid upstrokes. There is no thyromegaly. Lungs show markedly decreased breath sounds on the left with E to A egophony on the left. Percussion note is dull throughout the entire left side. Right lung shows present breath sounds with expiratory wheezing at mid to end expiration. Percussion note is full to the diaphragm on the left. I hear no inspiratory rales. Cardiac exam shows a faint 2/6 murmur heard best at the left lower sternal border. I cannot feel his point of maximum impulse (PMI). S1 and S2 are normal. Abdomen is tympanitic and slightly distended. He has a hard knobbly liver at the right costal margin. There is no tenderness. Bowel sounds are positive. There is no caput medusae. Extremities show no pretibial edema, no calf tenderness, no differential swelling of the upper extremities. Skin is warm, dry, and perfused without cyanosis or mottling including that of the nail beds and knees. He does have various ecchymoses over his arms and legs. Neurologic shows II-XII grossly intact along with gross motor intact. Gait is not tested. He does have asterixis on both hands. Psychiatric: Seemingly awake and alert and oriented times three. I do get the feeling he confabulates and, in fact, he has a positive string sign when I ask him to grab an imaginary string between my fingers. INVESTIGATIONS: Labs done at [facility] show a white count of 11.7 with a hemoglobin and hematocrit of 6.3 and 19.4, respectively. Platelet count is at 73. Since the time of this report, he has been given two units of blood. Differential shows 88% neutrophils, 5% lymphocytes, and 5% monocytes. There are no immature forms and no toxic granulations. His sodium is 136 with a potassium of 3.4, chloride of 109, and a total CO2 of 19. BUN and creatinine are 13 and 1.0. Glucose is 85. Calcium is 7.4. Lactic acid is 3.8. AST and ALT are 126 and 47, respectively. I do not see an ammonia level. Albumin is 0.9. PT/INR are 34.4 seconds with an INR of 3.4 and a PTT of 123. He is on no anticoagulants. His amylase is 24 with a lipase of 92. Repeat PT/INR here is 53.7 and 5.83, respectively, with a PTT of 105 seconds. Chemistries show no significant changes. His ammonia level is 53 here with an albumin of 1.1. His AFP tumor marker was 159 in September of this year. Repeat hematology is still pending after his blood transfusion. His chest x-ray shows almost complete opacity of the right hemithorax. There looks to be a tracheal shift to the right. He is slightly rotated but not enough to explain a tracheal deviation. Chest CT, done without contrast here out of concern for his renal function which is normal, shows a large left-sided pleural effusion which may or may not be loculated. He has complete compression of the lower and upper lobes. There is a little bit of aeration in the apical segment of the left upper lobe. There is no pericardial effusion. His liver looks small and lumpy-bumpy consistent with cirrhosis. There are a number of hypodense lesions in the liver but they look more tissue than fluid consistent with his hepatocellular carcinoma. His left adrenal is intact with a normal configuration. His right adrenal is also intact with a normal configuration. He has what looks to be a shunt from his TIPS procedure in place. It looks as though he has some loculated ascites over the left lobe of the liver and over the spleen. There is a little bit of ascites surrounding the liver. IMPRESSION: 1. Alcoholic cirrhosis. 2. Hepatocellular carcinoma. 3. Pleural effusion. 4. Profound anemia. 5. Wernicke-Korsakoff syndrome. 6. Hypothrombocytopenia. 7. Probable liver induced coagulopathy. 8. Borderline hepatic encephalopathy. PLAN AND DISCUSSION: I will immediately drain his chest. It should be noted that on the chest CT he has what looks to be an old fracture of rib #10 posteriorly. It has well demarcated calcific edges and does not look to be acute. He will need to have his coagulopathy reversed. His hemoglobin and hematocrit are still pending after his blood transfusion. There is a possibility of him having a hemothorax which I will ascertain after placing a chest tube. GOUVERNEUR HEALTHPetrona
--- NOTE | 2019-12-30 11:46 | CR ---
DATE OF CONSULTATION: 12/14/2019 CONSULTATION REPORT FOR: Khanh Hanna MD REASON FOR CONSULTATION: Acute kidney injury and associated problems. HISTORY OF PRESENT ILLNESS: Mr. 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 He was recently diagnosed with hepatocellular carcinoma with palliative treatment and also has chronic thrombocytopenia. He was transferred to [facility] from [facility] due to large pleural effusion and dyspnea. He has a left-sided chest tube in place currently and has drained about 2 liters of fluid. He has developed worsening kidney function due to which a nephrology consultation was requested this morning. Patient was recently admitted to [facility] and underwent liver biopsy where he was diagnosed with hepatocellular carcinoma. He also had infected ascites with methicillin-sensitive Staphylococcus aureus (MSSA) and has been treated with Rocephin. At the time of my visit, patient is awake but somewhat weak and could not provide any reliable information. PAST MEDICAL AND SURGICAL HISTORY: Significant for: 1. History of cirrhosis of liver with heavy chronic alcohol use, status post TIPS procedure and history of paracentesis. 2. Anemia. 3. Hepatocellular carcinoma. Past surgical history is significant for TIPS and thoracentesis. He also has a history of pleurocentesis. PERSONAL AND SOCIAL HISTORY: He was a heavy drinker, quit many years ago. No alcohol or drug use reported. FAMILY HISTORY: Noncontributory. ALLERGIES: Patient has no known drug allergies. MEDICATIONS: His home medications include: - folic acid - lactulose - thiamine - magnesium - potassium REVIEW OF SYSTEMS: Patient is somewhat vague, but denies any fever or chills. He was short of breath and had a large left pleural effusion. He now has a chest tube in the left side with 2 liters of fluid drained. Ears, nose, and throat are unremarkable. Cardiovascular system: Negative for chest pain or dyspnea now. He was admitted with dyspnea due to pleural effusion. Gastrointestinal (GI) system: Significant for cirrhosis of liver and hepatocellular carcinoma. He had a TIPS procedure. Genitourinary () system: Negative for dysuria or hematuria. Endocrine system: Negative for diabetes or thyroid problems. Hematological system: Significant for chronic thrombocytopenia. Musculoskeletal system: Significant for chronic lower extremity edema. Neurological system: Negative for seizures. He is somewhat disoriented and confused at times. Skin: Jaundiced. Psychosocial system: Negative for depression, anxiety. PHYSICAL EXAMINATION: Temperature 97.6 degrees Fahrenheit, heart rate 62 per minute, and respiratory rate 18 per minute. Blood pressure 96/54 mmHg and oxygen saturation 99% on 2 liters oxygen. He is very pale and somewhat jaundice. Spider angiomas are present on his neck and upper chest. Head is atraumatic. Neck is supple and jugular venous distention (JVD) is not elevated. His heart sounds are regular and lungs with diminished breath sounds and left- sided pleural rub, bibasilar rales are also present. Abdomen is soft, somewhat protuberant, and nontender. I do not feel hepatomegaly. Extremities have no cyanosis or clubbing. Skin is slightly jaundiced. Neurologically he is awake and grossly intact but somewhat vague and confused at times. LABORATORY DATA: Sodium is 140 today, potassium 3.3, chloride 112, CO2 20, BUN 17, and creatinine 1.56. Glucose 126 and lactic acid 3.5. Ammonia level is 41. Calcium 7.4, total bilirubin 3.8, AST 114, ALT 38, and alkaline phosphatase 56. PROBLEMS: 1. Acute kidney injury probably related to prerenal azotemia. I would suggest to continue with IV fluid hydration. He had a large pleural effusion drained. 2. Hypokalemia. Probably related to poor oral intake. His potassium should be replaced with oral and intravenous supplementation. 3. Anemia. He also has significant anemia and likely to benefit from transfusion. I will defer to the hospitalist service. 4. Metabolic acidosis. He has mild metabolic acidosis and does not need sodium bicarbonate at this point. 5. Cirrhosis of liver and hepatocellular carcinoma. His long-term prognosis remains poor. Thank you for involving me in the care of Mr. Khan. I will follow him along with you. SILVERD
--- NOTE | 2020-01-15 10:57 | REP ---
CT CHEST WITHOUT CONTRAST HISTORY: Evaluate pleural effusions. CT FINDINGS: There is a very small quantity of pleural fluid on the right. There is a large left pleural effusion confirmed. There is compressive atelectasis in the left lung. A small amount of residual aeration is seen in the upper and lower lobe in the perihilar distribution. There is mediastinal shift to the right as seen on the radiograph. No infiltrate is seen in the right lung. There is no significant pericardial effusion. There is mild upper abdominal ascites. Moderate splenomegaly is observed. A transjugular intrahepatic portosystemic shunt (TIPS) is seen in the liver. There is evidence of cirrhosis. There is a low density lesion in the left lobe of the liver measuring 4.1 cm in diameter. There is a cystic lesion in the epigastric region along the anterior inferior margin of the liver measuring 11.6 cm in diameter. This corresponds with recent sonographic findings. There is a peripherally calcified second lesion in the left lobe of the liver measuring approximately 3.5 cm in diameter. There is another low density lesion in the right lobe of the liver measuring 1.4 cm in diameter. Cholelithiasis is seen in the upper abdomen. IMPRESSION: Large left hydrothorax. Cirrhosis transjugular intrahepatic portosystemic shunt (TIPS) and minimal upper abdominal ascites. Cholelithiasis. Multiple liver lesions and an 11.6 cm cystic mass in the upper abdomen. MTDD
--- NOTE | 2020-01-15 10:58 | REP ---
LEFT RIB SERIES: 7-VIEWS INCLUDING PA CHEST HISTORY: Rib pain, rule out fracture. COMPARISON: 12/13/2019 7:53 am. FINDINGS: On PA chest radiograph, the left hemithorax remains almost completely opacified with some residual aeration in the left upper lobe region. There is mediastinal shift to the right consistent with a large left pleural effusion. This is similar in appearance to the earlier film. There is evidence of a transjugular intrahepatic portosystemic shunt (TIPS) and calcific densities in the right upper quadrant. Multiple views of the left rib cage demonstrate an old healed rib fracture involving the left lateral seventh rib. No acute rib fracture is appreciated. No right rib fracture is seen. IMPRESSION: No acute fracture or bony destructive lesion seen. Old fracture left lateral seventh rib. Large left effusion with mediastinal shift to the right and nearly complete opacification of the left hemithorax persists. MTDD
--- NOTE | 2020-01-15 11:00 | REP ---
TWO-VIEW CHEST COMPARISON: Multiple, the latest 12/13/2019 a portable examination obtained at 2 p.m. FINDINGS: The left-sided thoracotomy tube is unchanged. Somewhat patchy appearing left- sided opacities slightly improved. Persistent CT angle blunting on the left, but somewhat improved. No change in the appearance of the right lung. No new abnormal right lung opacities. No change in the cardiomediastinal silhouette. No change in the osseous structures. IMPRESSION: Evidence of improvement and other findings as described above. MTDD
--- NOTE | 2020-01-15 11:01 | REP ---
SONOGRAPHY OF THE ABDOMEN, ASCITES SURVEY: HISTORY: Check ascites. FINDINGS: There is mild ascites seen in all 4 quadrants. There is a large complex fluid collection at the left midline with a tract to the umbilicus. This measures 14.6 x 17.9 x 3.8 cm. It is septated. IMPRESSION: Minimal diffuse ascites. A large complex fluid collection is seen in the upper abdomen to the left of midline, 17.9 cm in greatest diameter. MTDD
--- NOTE | 2020-01-15 11:03 | REP ---
CHEST X-RAY: TWO-VIEWS HISTORY: Dyspnea. COMPARISON: 10/26/2019. FINDINGS: There is a large pleural opacity consistent with a large left pleural effusion. There is only a small amount of aerated left upper lobe in the perihilar and upper hemithorax. There appears to be a shift of the mediastinum to the right consistent with a large hydrothorax on the left. Pulmonary vasculature is congested on the right. No infiltrate is seen on the right. IMPRESSION: Large left hydrothorax opacifying most of the left hemithorax with shift of the mediastinum to the right. This is increased from the prior study. MTDD
--- NOTE | 2020-01-15 11:04 | REP ---
CHEST X-RAY: PORTABLE SITTING AP VIEW HISTORY: Chest tube. COMPARISON: 12/13/2019. FINDINGS: A left-sided chest tube is seen in place at the base of the lung. There is improved aeration. Some pleural thickening persists. The pleural effusion is improved. The mediastinal shift is improved, although the patient is rotated to the left for the current exposure. Congestive vascular markings persistent on the right. IMPRESSION: Left chest tube in place. Improved left effusion. MTDD
--- NOTE | 2020-01-28 13:41 | RO ---
DATE OF OPERATION: 12/13/2019 PREOPERATIVE DIAGNOSIS: Loculated pleural effusion. POSTOPERATIVE DIAGNOSIS: Loculated pleural effusion. PROCEDURE: Insertion of a left lateral chest tube with moderate sedation. SURGEON: Mitchell Kong MD PROCEDURE: Under satisfactory moderate sedation achieved with 3 mg of Versed, the patient was prepped and draped in the usual sterile fashion. The 7th intercostal space and 8th rib were infiltrated with 1% Lidocaine. Pleura was also infiltrated with Lidocaine. Incision was made and a tunnel was created in the chest without difficulty. #24 chest tube was placed. I drained 1600 cc of low viscosity sanguinous fluid. Specimens were sent directly for studies of chemistries, cytologies, hematologies and bacteriologies. The patient tolerated the procedure well after securing the chest tube with #2 Tevdek suture. Chest x-ray is pending. [facility] [place] [facility]
--- NOTE | 2020-01-30 07:21 | IPN ---
DATE: 12/14/2019 SUBJECTIVE: Mr. Khan is feeling a bit better today and he can breathe a bit better today. He is still showing signs of confabulation. He is asking to go home. His vital signs show a temperature maximum (T-max) of INCOMPLETE MTDD
== END 2019-12-14 21:10 | disposition short-term general hospital (02) | DRG 279 ==
LOC: ENRESERV 04:08 → M PCU 05:59
PROVIDERS: ADMIT Student in an Organized Health Care Education/Training Program; ATTEND Internal Medicine
PROC: 0W9B30Z Drainage of Left Pleural Cavity with Drainage Device, Percutaneous Approach (ICD-10-PCS; principal; 2019-12-13)
DX: K72.00 Acute and subacute hepatic failure without coma (principal); J18.9 Pneumonia, unspecified organism; J90 Pleural effusion, not elsewhere classified; N17.9 Acute kidney failure, unspecified; D69.6 Thrombocytopenia, unspecified; C22.8 Malignant neoplasm of liver, primary, unspecified as to type; K74.60 Unspecified cirrhosis of liver; Z79.899 Other long term (current) drug therapy